=== PATIENT | female | born 2000 | race Two or more races ===

== ENCOUNTER 2023-02-18 09:21 | Emergency (ER) | payer MEDICAID ==
[~2023-02-18] VITALS: Ht 165.1 cm; Wt 44.5 kg
[2023-02-18 10:01] LABS: Basophils # (auto) 0.1 10 ^3/uL (0-0.2); Basophils % (auto) 0.8 % (0.0-2.0); Eosinophils # (auto) 0 10 ^3/uL (0-0.8); Eosinophils % (auto) 0.3 % (0.0-7.0); Hematocrit 41.9 % (36.0-46.0); Hemoglobin 13.8 g/dL (12.2-16.2); Lymphocytes # (auto) 1.9 10 ^3/uL (0.4-5.4); Mean Corpuscular Hemoglobin 30.1 pg (28.0-32.0); Mean Corpuscular Hgb Conc. 33.1 g/dL (32.0-36.0); Mean Corpuscular Volume 91.2 fL (80.0-100.0); Monocytes # (auto) 0.5 10 ^3/uL (0-1.3); Monocytes % (auto) 6.1 % (0.0-12.0); Neutrophils # (auto) 6.1 10 ^3/uL (1.6-8.6); Neutrophils % (auto) 70.8 % (37.0-80.0); Red Blood Cells 4.59 10^6/uL (4.0-5.20); Red Cell Distribution Width 13.5 % (11.8-14.3); White Blood Cell 8.6 10^3/uL (4.4-10.8)
[2023-02-18 10:12] LABS: Albumin 4.2 g/dL (3.4-5.0); Calcium 8.9 mg/dL (8.5-10.1)
[2023-02-18 10:15] LABS: BUN/Creatinine Ratio 15.9 (10.0-20.0); Bilirubin, Total 1.8 mg/dL (0.2-1.0); Total Protein 7.4 g/dL (6.4-8.2)
[2023-02-18 10:36] LABS: Potassium 3.7 mmol/L (3.5-5.1)
[2023-02-18 11:46] LABS: Urine Bacteria MANY /hpf (None Seen); Urine Blood 3+ /uL (Negative); Urine Mucus MANY (None Seen); Urine WBC 5 /hpf (0 - 5)
[2023-02-18 12:42] VITALS: BP 118/75
== END 2023-02-18 12:47 | disposition home or self-care (01) ==
LOC: EDBD 09:21 → ER 09:21
DX: R55 Syncope and collapse (principal); F12.10 Cannabis abuse, uncomplicated; R10.2 Pelvic and perineal pain; Z88.2 Allergy status to sulfonamides
CPT/HCPCS: 36415; 70450; 80053; 81001; 82962; 84702; 85025; 93005

== ENCOUNTER 2023-09-11 11:56 | Inpatient (IN) | payer MEDICAID ==
[~2023-09-11] VITALS: Ht 162.6 cm; Wt 45.6 kg
[2023-09-11 12:36] LABS: Urine Bacteria NONE SEEN /hpf (None Seen); Urine Blood 3+ /uL (Negative); Urine Clarity Clear (Clear); Urine Color Yellow (Yellow); Urine Mucus FEW (None Seen); Urine Protein, UAD Negative (Negative); Urine Specific Gravity 1.023 (1.001-1.035); Urine Urobilinogen Normal (Negative); Urine WBC 2 /hpf (0 - 5)
[2023-09-11] MEDS ORDERED: KETOROLAC TROMETH 60MG/2ML VIAL IM ONE (12:45)
[2023-09-11 13:01] LABS: Basophils # (auto) 0.1 10 ^3/uL (0-0.2); Basophils % (auto) 0.7 % (0.0-2.0); Eosinophils # (auto) 0.1 10 ^3/uL (0-0.8); Eosinophils % (auto) 0.9 % (0.0-7.0); Hematocrit 40.2 % (36.0-46.0); Hemoglobin 13.5 g/dL (12.2-16.2); Lymphocytes # (auto) 2.3 10 ^3/uL (0.4-5.4); Lymphocytes % (auto) 21.9 % (10.0-50.0); Mean Corpuscular Hemoglobin 30.7 pg (28.0-32.0); Mean Corpuscular Hgb Conc. 33.5 g/dL (32.0-36.0); Mean Corpuscular Volume 91.4 fL (80.0-100.0); Monocytes # (auto) 0.4 10 ^3/uL (0-1.3); Monocytes % (auto) 4.1 % (0.0-12.0); Neutrophils # (auto) 7.4 10 ^3/uL (1.6-8.6); Neutrophils % (auto) 72.4 % (37.0-80.0); Red Blood Cells 4.39 10^6/uL (4.0-5.20); Red Cell Distribution Width 13.5 % (11.8-14.3); White Blood Cell 10.3 10^3/uL (4.4-10.8)
[2023-09-11 13:16] LABS: Alanine Aminotransferase 18 U/L (7-40); Albumin 4.7 g/dL (3.2-4.8); Alkaline Phosphatase 51 U/L (46-116); Anion Gap 5 (5-15); Aspartate Aminotransferase 19 U/L (13-40); BUN/Creatinine Ratio 12.5 (10.0-20.0); Blood Urea Nitrogen 9 mg/dL (9-23); Calcium 9.2 mg/dL (8.7-10.4); Carbon Dioxide 27 mmol/L (20-30); Chloride 106 mmol/L (98-107); Glucose 96 mg/dL (74-106); Lipase 45 U/L (12-53); Potassium 3.7 mmol/L (3.5-5.1); Sodium 138 mmol/L (136-145)
[2023-09-11 13:17] LABS: Bilirubin, Total 1.4 mg/dL (0.2-1.0); Total Protein 7.5 g/dL (5.7-8.2)
[2023-09-11] MEDS ORDERED: KETOROLAC TROMETH 30 MG/ML 1ML VIAL IV PRN (18:30)
[2023-09-11] MEDS ORDERED: ACETAMINOPHEN 325 MG TAB PO PRN (18:30)
[2023-09-11] MEDS ORDERED: HYDROcodone-ACET 5/325MG TAB PO PRN (18:30)
[2023-09-11] MEDS ORDERED: SODIUM CHLORIDE 0.9% 1,000 ML IV ONE (18:30)
[2023-09-11] MEDS ORDERED: IBUP-1455 PO (18:32)
[2023-09-11] MEDS ORDERED: CLIN-203 PO (18:32)
[2023-09-11] MEDS ORDERED: ALBUTEROL SULF 2.5 MG/0.5ML(0.5%) NEB SOLN NEB PRN (19:15)
[2023-09-12 00:30] VITALS: PULSE 78; RESP 12; O2SAT 96
[2023-09-12] MEDS: SODIUM CHLORIDE 0.9% 1,000 ML IV SCH ×3 (00:40→09:06)
[2023-09-12 00:57] VITALS: BP 126/78; PULSE 72; RESP 18; TEMP 98.6; O2SAT 99
[2023-09-12 05:22] LABS: Basophils # (auto) 0 10 ^3/uL (0-0.2); Basophils % (auto) 0.6 % (0.0-2.0); Eosinophils # (auto) 0.1 10 ^3/uL (0-0.8); Eosinophils % (auto) 1.8 % (0.0-7.0); Hemoglobin 11.8 g/dL (12.2-16.2); Mean Corpuscular Hemoglobin 30.5 pg (28.0-32.0); Mean Corpuscular Hgb Conc. 32.8 g/dL (32.0-36.0); Mean Corpuscular Volume 92.9 fL (80.0-100.0); Monocytes # (auto) 0.5 10 ^3/uL (0-1.3); Monocytes % (auto) 6.3 % (0.0-12.0); Neutrophils # (auto) 4.5 10 ^3/uL (1.6-8.6); Neutrophils % (auto) 54.3 % (37.0-80.0); Nucleated Red Blood Cells % 0.1 %; Red Blood Cells 3.87 10^6/uL (4.0-5.20); Red Cell Distribution Width 13.7 % (11.8-14.3); White Blood Cell 8.2 10^3/uL (4.4-10.8)
[2023-09-12 05:39] LABS: Alanine Aminotransferase 15 U/L (7-40); Alkaline Phosphatase 41 U/L (46-116); Anion Gap 6 (5-15); BUN/Creatinine Ratio 14.1 (10.0-20.0); Blood Urea Nitrogen 9 mg/dL (9-23); Calcium 7.9 mg/dL (8.7-10.4); Carbon Dioxide 24 mmol/L (20-30); Chloride 110 mmol/L (98-107); Glucose 86 mg/dL (74-106); Potassium 3.8 mmol/L (3.5-5.1); Sodium 140 mmol/L (136-145)
[2023-09-12 05:40] LABS: Albumin 3.4 g/dL (3.2-4.8); Aspartate Aminotransferase 16 U/L (13-40); Bilirubin, Total 1.7 mg/dL (0.2-1.0); Total Protein 5.7 g/dL (5.7-8.2)
[2023-09-12 09:00] VITALS: BP 109/65; PULSE 71; RESP 16; TEMP 97.6; O2SAT 98
== END 2023-09-12 13:18 | disposition home or self-care (01) ==
LOC: ER 11:56 → OVERFLOW 18:31 → WEST WING 09-12 08:10
PROVIDERS: ADMIT Nurse Practitioner Family; ATTEND Internal Medicine
DX: K80.20 Calculus of gallbladder without cholecystitis without obstruction (principal); J45.909 Unspecified asthma, uncomplicated; N83.209 Unspecified ovarian cyst, unspecified side; Z80.51 Family history of malignant neoplasm of kidney; Z88.2 Allergy status to sulfonamides
CPT/HCPCS: 36415; 76705; 76856; 80053; 81001; 81025; 82248; 83690; 85025; G0378; J1885

== ENCOUNTER 2025-07-27 08:38 | Emergency (ER) | payer MEDICAID ==
[~2025-07-27] VITALS: Ht 165.1 cm; Wt 55.0 kg
[~2025-07-27 08:38] MED LIST: CLIN-203 PO; IBUP-1455 PO
[2025-07-27 08:39] VITALS: BP 122/67; PULSE 76; RESP 16; TEMP 98.6; O2SAT 97
--- NOTE | 2025-07-27 09:20 | ED.PDOC ---
GI ASSESSMENT HPI Comments 25 y/o F, with no prior medical history, presents to the ED for CC of abdominal pain. Patient states, she has been experiencing right sided abdominal pain with associated nausea sudden onset, last night (07/26/25). Patient denies vomiting, diarrhea, fever, chills, or sweats. No other symptoms or modifying factors are present at this time. Chief Complaint: Abdominal Pain Time Seen by MD: 09:00 Primary Care Provider: NONE Reviewed Notes: Nurses Notes, Medications, Allergies Allergies: Coded Allergies: Sulfa Antibiotics (Verified Allergy, Unknown, 02/18/23) Home Meds Reported Medications Ibuprofen Micronized (Ibuprofen) 800 Mg Tab, 1 TAB PO PRN 09/11/23 Clindamycin HCl (Clindamycin Hydrochloride) 300 Mg Cap, 1 CAP PO TID 09/11/23 Information Source: Patient Mode of Arrival: Ambulatory Timing: Hours Duration: Since onset Prehospital treatment: None Vomitus: None Stool: Normal Severity: Moderate Recent: None Recent Hx of: None Pain Location: RUQ, RLQ Modifying Factors: Nothing Associated sign and symptoms: Nausea, Abdominal Pain Past Medical History PAST MEDICAL HISTORY: Denies Surgical History: Denies all surgeries 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 History: Denies all 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 OPERATOR Hx Family History Family History: Reviewed,noncontributory to illness Social History Smoker: Non-Smoker Alcohol: Denies ETOH Use Drugs: Marijuana Lives In: Home Constitutional: denies: chills, diaphoresis, fatigue, fever, malaise, sweats, weakness, others EENTM: denies: blurred vision, double vision, ear bleeding, ear discharge, ear drainage, ear pain, ear ringing, eye pain, eye redness, hearing loss, mouth pain, mouth swelling, nasal discharge, nose bleeding, nose congestion, nose pain, photophobia, tearing, throat pain, throat swelling, voice changes, others Respiratory: denies: cough, hemoptysis, orthopnea, SOB at rest, shortness of breath, SOB with excertion, stridor, wheezing, others Cardiovascular: denies: chest pain, dizzy spells, diaphoresis, Dyspnea on exertion, edema, irregular heart beat, left arm pain, lightheadedness, palpitations, PND, syncope, others Gastrointestinal: reports: abdominal pain, nausea; denies: abdomen distended, blood streaked bowels, constipated, diarrhea, dysphagia, difficulty swallowing, hematemesis, melena, poor appetite, poor fluid intake, rectal bleeding, rectal pain, vomiting, others Genitourinary: denies: abnormal vagina bleeding, burning, dyspareunia, dysuria, flank pain, frequency, hematuria, incontinence, pain, , vagina dischar ge, urgency, others Neurological: denies: dizziness, fainting, headache, left sided numbness, left sided weakness, numbness, paresthesia, pre-existing deficit, right sided numbness, right sided weakness, seizure, speech problems, tingling, tremors, weakness, others Musculoskeletal: denies: back pain, gout, joint pain, joint swelling, muscle pain, muscle stiffness, neck pain, others Integumetry: denies: bruises, change in color, change in hair/nails, dryness, laceration, lesions, lumps, rash, wounds, others Allergic/Immunocompromised: denies: Difficulty Healing, Frequent Infections, Hives, Itching, others Hematologic/Lymphatic: denies: anemia, blood clots, easy bleeding, easy bruising, swollen glands, others Endocrine: denies: excessive hunger, excessive sweating, excessive thirst, excessive urination, flushing, intolerance to cold, intolerance to heat, unexplained weight gain, unexplained weight loss, others Psychiatric: denies: anxiety, bipolar disorder, depression, hopeless, panic disorder, schizophrenia, sleepless, suicidal, others All Other Systems: Reviewed and Negative Physical Exam General Appearance: Moderate Distress HEENT: Normal ENT Inspection, Pharynx Normal, TMs Normal Neck: Full Range of Motion, Non-Tender, Normal, Normal Inspection Respiratory: Chest Non-Tender, Lungs Clear, No Accessory Muscle Use, No Respiratory Distress, Normal Breath Sounds Cardiovascular: No Edema, No JVD, No Murmur, No Gallop, Normal Peripheral Pulses, Regular Rate/Rhythm Breast Exam: Deferred Gastrointestinal: No Organomegaly, Non Tender, No Pulsatile Mass, Normal Bowel Sounds, Soft Genitalia: Deferred Pelvic: Deferred Rectal: Deferred Extremities: No calf tenderness, Normal capillary refill, Normal inspection, Normal range of motion, Non-tender, No pedal edema Musculoskeletal : Apperance: Normal Neurologic: Alert, mc kay stitcher II-XII nml as Tested, No Motor Deficits, Normal Affect, Normal Mood, No Sensory Deficits Cerebellar Function: Normal Reflexes: Normal Skin: Dry, Normal Color, Warm Peripheral Pulses: 3+ Radial (R), 3+ Radial (L) Lymphatic: No Adenopathy Was a procedure done? Was a procedure done?: No GI differential Dx Differential Diagnosis: Constipation, Diverticular disease, Esophagitis, Gastritis/PUD, Gastroenteritis, Inflammatory BD, Urolithiasis, Kidney Stone X-Ray, Labs, Meds, VS Vital Signs Date Time Temp Pulse Resp B/P (MAP) Pulse Ox O2 Delivery O2 Flow Rate FiO2 07/27/25 08:39 98.6 76 16 122/67 97 98.6 Lab Test 07/27/25 09:42 Range/Units White Blood Count 5.3 4.4-10.8 10^3/uL Red Blood Count 4.44 4.0-5.20 10^6/uL Hemoglobin 13.2 12.2-16.2 g/dL Hematocrit 38.5 36.0-46.0 % Mean Corpuscular Volume 86.7 80.0-100.0 fL Mean Corpuscular Hemoglobin 29.7 28.0-32.0 pg Mean Corpuscular Hemoglobin Concent 34.2 32.0-36.0 g/dL Red Cell Distribution Width 14.1 11.8-14.3 % Platelet Count 274 140-450 10^3/uL Mean Platelet Volume 9.1 6.9-10.8 fL Neutrophils (%) (Auto) 61.1 37.0-80.0 % Lymphocytes (%) (Auto) 30.3 10.0-50.0 % Monocytes (%) (Auto) 6.5 0.0-12.0 % Eosinophils (%) (Auto) 1.1 0.0-7.0 % Basophils (%) (Auto) 1.0 0.0-2.0 % Neutrophils # (Auto) 3.2 1.6-8.6 10 ^3/uL Lymphocytes # (Auto) 1.6 0.4-5.4 10 ^3/uL Monocytes # (Auto) 0.3 0-1.3 10 ^3/uL Eosinophils # (Auto) 0.1 0-0.8 10 ^3/uL Basophils # (Auto) 0.1 0-0.2 10 ^3/uL Nucleated Red Blood Cells 0.1 % Sodium Level 144 136-145 mmol/L Potassium Level 3.7 3.5-5.1 mmol/L Chloride Level 109 H 98-107 mmol/L Carbon Dioxide Level 26 20-31 mmol/L Anion Gap 9 5-15 Blood Urea Nitrogen 6 L 9-23 mg/dL Creatinine 0.71 0.550-1.02 mg/dL Glomerular Filtration Rate Calc 120 >90 mL/min BUN/Creatinine Ratio 8.5 L 10.0-20.0 Serum Glucose 82 74-106 mg/dL Calcium Level 9.1 8.7-10.4 mg/dL Total Bilirubin 0.7 0.2-1.0 mg/dL Aspartate Amino Transferase (AST) 24 13-40 U/L Alanine Aminotransferase (ALT) 18 7-40 U/L Alkaline Phosphatase 41 L 46-116 U/L Total Protein 7.1 5.7-8.2 g/dL Albumin 4.5 3.2-4.8 g/dL Patient alert. Came in because of abdominal discomfort. Abdomen is soft nontender. Vitals stable. Answering questions. Total bilirubin within normal limits. WBC within normal limits. Hemoglobin within normal limits. Saturation pristine on room air. No leg swelling. No chest pain. No shortness a breath. No pain medication was given because her physical examination was pristine. Explained to the patient. Was told to follow up with her primary care physician. Was told to come back if there is any problem. Time of 1ST Reevaluation: 09:30 Reevaluation 1ST: Unchanged Patient Education/Counseling: Diagnosis, Treatment Family Education/Counseling: No Family Present SEPSIS Sepsis Screen Date sepsis recognized/suspect: Jul 27, 2025 Time Sepsis recognized/suspect: 08 Recent Procedure: No On Antibiotic Therapy: No Respiratory Rate >20: No Heart Rate >90: No Temp<36 C (96.8 F) or >38.3 C: No SBP <90 or MAP <65 mmHG: No New Acute Mental Status Change: No Is the patient on CPAP, BIPAP,: No Physician Orders Urinalysis (07/27/25 09:33) Vital Signs Date Time Temp Pulse Resp B/P (MAP) Pulse Ox O2 Delivery O2 Flow Rate FiO2 07/27/25 08:39 98.6 76 16 122/67 97 98.6 Laboratory Tests Test 07/27/25 09:42 White Blood Count 5.3 10^3/uL (4.4-10.8) Departure 1 Departure Time of Disposition: 10:40 Impression: Primary Impression: Colic Disposition: 01 HOME / SELF CARE / HOMELESS Condition: Good Discharged With: Self Critical Care Note Critical Care Time?: No Stability Stability form required: No Heart Score Heart Score: Heart Score Response (Comments) Value History N/A 0 EKG N/A 0 Age N/A 0 Risk Factors N/A 0 Troponin N/A 0 Total 0 I personally scribed for RALPH FRANZ MD ([email or web address]) on 07/27/25 at 09:20. Electronically submitted by Mary Rocha [email or web address]). RALPH FRANZ MD Jul 27, 2025 09:20
[2025-07-27 10:02] LABS: Hematocrit 38.5 % (36.0-46.0); Hemoglobin 13.2 g/dL (12.2-16.2); Mean Corpuscular Hemoglobin 29.7 pg (28.0-32.0); Mean Corpuscular Volume 86.7 fL (80.0-100.0); Nucleated Red Blood Cells % 0.1 %
[2025-07-27 10:11] LABS: Alanine Aminotransferase 18 U/L (7-40); Anion Gap 9 (5-15); BUN/Creatinine Ratio 8.5 (10.0-20.0); Calcium 9.1 mg/dL (8.7-10.4); Carbon Dioxide 26 mmol/L (20-31); Glucose 82 mg/dL (74-106); Potassium 3.7 mmol/L (3.5-5.1); Sodium 144 mmol/L (136-145); Total Protein 7.1 g/dL (5.7-8.2)
[2025-07-27 10:12] LABS: Albumin 4.5 g/dL (3.2-4.8); Bilirubin, Total 0.7 mg/dL (0.2-1.0)
[2025-07-27 10:15] LABS: Alkaline Phosphatase 41 U/L (46-116); Blood Urea Nitrogen 6 mg/dL (9-23); Chloride 109 mmol/L (98-107)
== END 2025-07-27 11:20 | disposition left against medical advice (07) ==
LOC: ER 08:38
DX: R10.84 Generalized abdominal pain (principal); F12.90 Cannabis use, unspecified, uncomplicated; Z79.899 Other long term (current) drug therapy
CPT/HCPCS: 36415; 80053; 85025